=== PATIENT | male | born 1945 | race Asian ===

== ENCOUNTER → 2018-05-17 | Day surgery (SDC) | payer MEDICARE, OTHER ==
[~2018-05-17] VITALS: Ht 157.5 cm; Wt 54.4 kg
[2018-05-17 07:07] VITALS: BP 139/75
[2018-05-17 12:29] VITALS: BP 144/76
== END | disposition home or self-care (01) ==
LOC: DS 06:53 → GI 08:45 → OR 08:45
PROVIDERS: Internal Medicine Gastroenterology
PROC: 0DB68ZX Excision of Stomach, Via Natural or Artificial Opening Endoscopic, Diagnostic (ICD-10-PCS; principal; 2018-05-17 08:45)
DX: R10.13 Epigastric pain (principal); Z87.11 Personal history of peptic ulcer disease; Z87.891 Personal history of nicotine dependence
CPT/HCPCS: 43235; J1200; J1610; J2250; J2310; J3010; J3490